=== PATIENT | female | born 1950 | race Caucasian/White ===

== ENCOUNTER 2017-02-23 10:00 | Day surgery (SDC) | payer OTHER ==
[~2017-02-23] VITALS: Ht 165.1 cm; Wt 68.0 kg
[2017-02-23 10:27] VITALS: Ht 165.1 cm; Wt 68.0 kg
[2017-02-23] MEDS ORDERED: GLUC100015 PO (10:31)
[2017-02-23] MEDS ORDERED: [UNRECOGNIZED DRUG - CODE] PO (10:32)
[2017-02-23 10:47] VITALS: BP 127/58; PULSE 59; RESP 15
[2017-02-23] MEDS ORDERED: FENTAnyl 50 MCG/ML VIAL ONE (11:11)
[2017-02-23] MEDS ORDERED: MIDAZOLAM 1 MG/ML 2 ML INJ ONE (11:11)
[2017-02-23] MEDS ORDERED: PROPOFOL 20 ML ONE (11:11)
--- NOTE | 2017-02-23 11:30 | OPPN ---
Date/Time of Note Date/Time of Note DATE: 02/23/17 TIME: 11:27 Proc Note GI Procedure Date 02/23/17 Indication: screening/surveillance Pre-procedure Diagnosis r/o colon polyps Post-procedure Diagnosis normal colon Procedure Performed: Colonoscopy Surgeon see signature line Data Modeler none Anesthesia Type: MAC Anesthesiologist: HUSSAIN ELLER MD Tourniquet Time none EBL none Transfusion required none Biopsy 1: none Grafts/Implants none Tubes/Drains none Complication(s) none Disposition: home Procedure Description colonoscopy with mac normal exam plan colonoscopy 10 yrs KIM CORTEZ MD Feb 23, 2017 11:30
--- NOTE | 2017-02-23 12:52 | GILP ---
DATE OF PROCEDURE: PREOPERATIVE DIAGNOSIS: Screening colonoscopy to rule out colon polyps. POSTOPERATIVE DIAGNOSIS: Normal examination. PLAN Recommend colonoscopy in 10 years. DESCRIPTION OF PROCEDURE: After informed written consent was obtained, the patient was asked to lie on the left lateral side. Intravenous anesthesia was given by anesthesiologist, Dr. Doshi. Whe n the patient became somnolent, the Olympus video colonoscope was introduced into the rectum and sco pe was advanced all the way to the cecum. Entire colon appeared normal up to the cecum. Scope was withdrawn and on the way out, no additional abnormalities detected. No polyps noted. Endoscope was withdrawn and no hemorrhoids noted and the procedure was terminated. PLAN: Recommend repeat colonoscopy in 10 years. Dictated By: KIM STEPHENS/TABITHA Conf#: [id number] DID#: [id number] CC: [facility];*EndCC*
== END 2017-02-23 15:22 | disposition home or self-care (01) ==
LOC: GIL 10:00
PROVIDERS: ATTEND Internal Medicine Gastroenterology
DX: Z12.11 Encounter for screening for malignant neoplasm of colon (principal)
CPT/HCPCS: J2250; J3010